=== PATIENT | male | born 1990 | race Two or more races ===

== ENCOUNTER 2017-11-08 08:42 | Emergency (ER) | payer OTHER ==
[2017-11-08] MEDS ORDERED: LIDOCAINE 1% INJ-PF (10 MG/ML) 30 ML SDV INJ ONE (09:14)
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
[2017-11-08 10:37] VITALS: BP 105/85
== END 2017-11-08 10:36 | disposition home or self-care (01) ==
LOC: ER 08:42
PROC: 0HQ1XZZ Repair Face Skin, External Approach (ICD-10-PCS; principal; 2017-11-08)
DX: S01.81XA Laceration without foreign body of other part of head, initial encounter (principal); Y00.XXXA Assault by blunt object, initial encounter; F17.210 Nicotine dependence, cigarettes, uncomplicated
CPT/HCPCS: 99282; 12011; J3490